=== PATIENT | male | born 1990 | race Caucasian/White ===

== ENCOUNTER 2018-02-19 20:47 | Emergency (ER) | payer MEDICAID ==
[~2018-02-19] VITALS: Ht 647.4 cm; Wt 127.5 kg
[~2018-02-19 20:47] MED LIST: ENOX30SY10 SQ; ENOX80SY7 SUBCUT; RIVA15TA PO; RIVA20TA PO
[2018-02-19 21:51] VITALS: BP 142/98
== END 2018-02-19 21:51 | disposition home or self-care (01) ==
LOC: ER 20:48
DX: F41.9 Anxiety disorder, unspecified (principal); F43.9 Reaction to severe stress, unspecified; M62.81 Muscle weakness (generalized); H53.8 Other visual disturbances; J45.909 Unspecified asthma, uncomplicated; Z86.711 Personal history of pulmonary embolism; Z86.718 Personal history of other venous thrombosis and embolism; Z79.899 Other long term (current) drug therapy
CPT/HCPCS: 99283